=== PATIENT | male | born 1940 | race Caucasian/White ===

== ENCOUNTER 2022-04-13 17:12 | Inpatient (IN) | payer MEDICARE ==
[~2022-04-13] VITALS: Ht 188 cm; Wt 75.7 kg
--- NOTE | 2022-04-13 17:20 | NUR ---
81 Y.O. M MILLYLilliam FROM [facility] DUE TO LOW BP. BP WAS 110/70 WHEN PT WAS LAYING DOWN BUT WHEN RETAKEN SITTING UP IT WAS 68/40. ON ARRIVAL PTS BP WAS 126/74. PT TOLD EMS HE HAD BEEN FEELING WEAK FOR THE LAST FEW DAYS. PT DENIES PAIN AT THIS TIME. DENEIS CHEST PAIN, SOB, AND N/V/D. A&OX4, SKIN INTACT, VITALS WNL, AND AMBULATES WITH ASSITIVE DEVICE. NKA HX: CHF, PRE DIABETIC, BLIND R EYE
[2022-04-13 17:28] VITALS: BP 126/74
--- NOTE | 2022-04-13 18:34 | NUR ---
DR SWARTZ AT BEDSIDE EVALUATING PT
[2022-04-13] MEDS ORDERED: NACL 0.9% 500 ML IV ONE ×2 (18:50→20:30)
[2022-04-13 19:19] LABS: BASOPHILS % (AUTO) 0.2 % (0.0-2.0); EOSINOPHILS # (AUTO) 0.1 K/uL (0-0.4); HEMATOCRIT 38.5 % (36-52); HEMOGLOBIN 12.7 g/dL (12.0-18.0); LYMPHOCYTES # (AUTO) 0.4 K/uL (2.0-11.5); LYMPHOCYTES % (AUTO) 5.2 % (20.5-51.1); MEAN CORPUSCULAR HEMOGLOBIN 31 pg (27-31); MEAN CORPUSCULAR HGB CONC 33 g/dL (33-37); MEAN CORPUSCULAR VOLUME 94.8 fL (80-94); MONOCYTES # (AUTO) 0.6 K/uL (0.8-1.0); MONOCYTES % (AUTO) 7.7 % (1.7-9.3); NEUTROPHILS % (AUTO) 85.9 % (42.2-75.2); PLATELET COUNT (AUTO) 266 K/uL (140-450); RED BLOOD CELL COUNT(AUTO) 4.06 MIL/uL (4.20-6.10); RED CELL DISTRIBUTION WIDTH 14.2 % (11.6-13.7); WHITE BLOOD COUNT (AUTO) 8.2 K/uL (4.8-10.8)
--- NOTE | 2022-04-13 19:26 | NUR ---
Note undone in EDM - 04/13/22 at 1927 by LUIGI 81 Y.OAmber WOOD FROM [facility] DUE TO LOW BP. BP WAS 110/70 WHEN PT WAS LAYING DOWN BUT WHEN RETAKEN SITTING UP IT WAS 68/40. ON ARRIVAL PTS BP WAS 126/74. PT TOLD EMS HE HAD BEEN FEELING WEAK FOR THE LAST FEW DAYS. PT DENIES PAIN AT THIS TIME. DENEIS CHEST PAIN, SOB, AND N/V/D. A&OX4, SKIN INTACT, VITALS WNL, AND AMBULATES WITH ASSITIVE DEVICE. SO HX: CHF, PRE DIABETIC, BLIND R EYE
--- NOTE | 2022-04-13 19:27 | NUR ---
Pt report given to WESLEY PINEDA. Transfer of care at this time.
[2022-04-13 19:36] LABS: ALBUMIN 2.9 g/dL (3.4-5.0); ANION GAP 15.1 (8-16); ASPARTATE AMINOTRANSFERASE 11 U/L (15-37); CARBON DIOXIDE 22.5 mmol/L (21-32); CHLORIDE 104 mmol/L (98-107); CREATININE 2.2 mg/dL (0.6-1.3); GLUCOSE 143 mg/dL (74-106); POTASSIUM 4.6 mmol/L (3.5-5.1); SODIUM SERUM 137 mmol/L (136-145); TOTAL BILIRUBIN 0.6 mg/dL (0.0-1.0); UREA NITROGEN, BLOOD 36 mg/dL (7-18)
--- NOTE | 2022-04-13 21:20 | NUR ---
COVID/DANNY SWAB COLLECTED AND WALKED TO LAB
[2022-04-13] MEDS ORDERED: SIMV10TA1 PO (22:01)
[2022-04-13] MEDS ORDERED: MELA3TER PO (22:01)
[2022-04-13] MEDS ORDERED: FERR325E14 PO (22:01)
[2022-04-13] MEDS ORDERED: TAMS0.4C96 PO (22:01)
[2022-04-13] MEDS: NACL 0.9% 1,000 ML IV SCH (22:07)
--- NOTE | 2022-04-13 22:58 | NUR ---
Patient will be admitted to care of DR KOLB. Admited to TELE. Will go to room 123B. Belongings list completed. Report to WESLEY KENDRICK.
--- NOTE | 2022-04-13 23:00 | NUR ---
PT WAS TRANSPORTED ON GURNEY FROM ER. PT CAME IN FOR PROGRESSIVE WEAKNESS AND LOW BLOOD PRESSURE. PT IS AAOX4 BUT [place]. 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 PT IS ON RA. PT HAS IV ON LEFT AC 20 GAUGE WITH NS 100 CC/HR. PT IS ABLE TO AMBULATE WITH ASSISTIVE DEVICE. PT IS EDUCATED NOT TO AMBULATE SINCE HIS BLOOD PRESSURE WAS GOING DOWN TO THE 70S AND 60S SYSTOLIC WHEN STANDING UP. PT EDUCATED EQUIPMENT MAINTENANCE ENGINEER LIGHT SYSTEM. PT DENIES ANY PAIN. PLAN OF CARE DISCUSSED. WILL CONTINUE TO MONITOR THE PT.
[2022-04-14] VITALS: BP 149/92
[2022-04-14 00:09] LABS: APPEARANCE,URINE HAZY (CLEAR); BILIRUBIN,URINE NEGATIVE (NEGATIVE); BLOOD, URINE NEGATIVE (NEGATIVE); COLOR,URINE YELLOW (YELLOW); LEUKOCYTE ESTERASE ,URINE NEGATIVE (NEGATIVE); NITRITE, URINE NEGATIVE (NEGATIVE); PH,URINE 5.5 (5.0-9.0); UGLUCOSE NEGATIVE (NEGATIVE)
--- NOTE | 2022-04-14 01:58 | NUR ---
PT IS AWAKE. PT HELPED WITH USING URINAL. PT HAS NO COMPLAINS AT THIS TIME. IVF RUNNING PER MD ORDER. CALL LIGHT WITHIN REACH. WILL CONTINUE TO MONITOR THE PT.
[2022-04-14 04:00] VITALS: BP 140/77
--- NOTE | 2022-04-14 05:05 | NUR ---
PT WAS CLEANED AND CHANGED. PT HAD 2 BM. LOOSE AND BLACK. PT WAS ABLE TO ASSIST WITH TURNING. NEW GOWN PLACED. NO COMPLAINS FROM THE PT. WILL CONTINUE TO MONITOR THE PT.
[2022-04-14 06:15] LABS: ANION GAP 14.7 (8-16); BASOPHILS % (AUTO) 0.2 % (0.0-2.0); CARBON DIOXIDE 21.4 mmol/L (21-32); CHLORIDE 107 mmol/L (98-107); CREATININE 1.7 mg/dL (0.6-1.3); EOSINOPHILS # (AUTO) 0.1 K/uL (0-0.4); EOSINOPHILS % (AUTO) 1.9 % (0.0-4.0); GLUCOSE 82 mg/dL (74-106); HEMATOCRIT 34.7 % (36-52); HEMOGLOBIN 11.6 g/dL (12.0-18.0); LYMPHOCYTES # (AUTO) 0.6 K/uL (2.0-11.5); LYMPHOCYTES % (AUTO) 8.8 % (20.5-51.1); MEAN CORPUSCULAR HEMOGLOBIN 31 pg (27-31); MEAN CORPUSCULAR HGB CONC 34 g/dL (33-37); MEAN CORPUSCULAR VOLUME 93.7 fL (80-94); MONOCYTES # (AUTO) 0.9 K/uL (0.8-1.0); MONOCYTES % (AUTO) 13.3 % (1.7-9.3); NEUTROPHILS # (AUTO) 5.1 K/uL (1.8-7.7); NEUTROPHILS % (AUTO) 75.8 % (42.2-75.2); PLATELET COUNT (AUTO) 263 K/uL (140-450); POTASSIUM 4.1 mmol/L (3.5-5.1); SODIUM SERUM 139 mmol/L (136-145); UREA NITROGEN, BLOOD 31 mg/dL (7-18); WHITE BLOOD COUNT (AUTO) 6.8 K/uL (4.8-10.8)
[2022-04-14] MEDS: NACL 0.9% 1,000 ML IV SCH (06:35)
--- NOTE | 2022-04-14 07:32 | NUR ---
ENDORSED PT TO DAY SHIFT RN FOR CONTINUITY OF CARE. PT IS STABLE.
--- NOTE | 2022-04-14 07:34 | NUR ---
RECEIVED PATIENT REPORT FROM LIVESTOCK SHOWMAN NURSE FOR CONTINUITY OF CARE. PT IS AAOX4 BUT [place]. 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 ON ROOM AIR AND NO DISTRESS NOTED. PT HAS IV ON LEFT AC 20 GAUGE WITH NS 100 CC/HR. SKIN IS WARM, DRY, AND INTACT. DENIES PAIN AT THE MOMENT. PLAN OF CARE DISCUSSED. SAFETY PRECAUTIONS IN PLACE. CALL LIGHT WITHIN REACH. WILL CONTINUE TO MONITOR THE PT.
[2022-04-14 08:00] VITALS: BP 145/88
--- NOTE | 2022-04-14 09:00 | NUR ---
NO SCHEDULED MEDS GIVEN. PT IS STABLE. NO DISTRESS NOTED. WILL CONTINUE TO MONITOR.
--- NOTE | 2022-04-14 10:44 | NUR ---
PATIENT HAS BEEN SCREENED AND CATEGORIZED MODERATE NUTRITION RISK. PATIENT WILL BE SEEN WITHIN 3-5 DAYS OF ADMISSION. [address]
[2022-04-14] MEDS ORDERED: MORPHINE SULFATE 2 MG/ML SYR IVP PRN (11:35)
[2022-04-14] MEDS ORDERED: DOCUSATE SODIUM 100 MG GELCAP PO PRN (11:35)
[2022-04-14] MEDS ORDERED: ACETAMINOPHEN 325 MG TAB PO PRN (11:35)
[2022-04-14] MEDS ORDERED: ZOLPIDEM 10 MG TAB PO PRN (11:35)
[2022-04-14] MEDS ORDERED: POTASSIUM CHLORIDE 10 MEQ TABER PO PRN (11:35)
[2022-04-14] MEDS ORDERED: ONDANSETRON 4 MG/2 ML VIAL IVP PRN (11:35)
[2022-04-14] MEDS ORDERED: MAG SULF 2000 MG/WATER PREMIX 50 ML IV PRN (11:55)
--- NOTE | 2022-04-14 12:10 | NUR ---
CHECKED ON PATIENT. PT IS STABLE. NO DISTRESS NOTED. WILL CONTINUE TO MONITOR.
--- NOTE | 2022-04-14 15:00 | NUR ---
OBTAINED STOOL SAMPLE AND SENT DOWN TO LABS
[2022-04-14 16:00] VITALS: BP 139/80
--- NOTE | 2022-04-14 16:44 | NUR ---
DC PLANNING: THE PATIENT ADMITTED WITH C/O HYPOTENSION, WEAKNESS, AND DECREASED PO INTAKE. CR 2.2, CXR SHOWS MILD RIGHT BASAL ATELECTASIS, RENAL US SHOWS RENAL CYSTS. BLOOD AND URINE CULTURES ORDERED, P.T. EVAL DONE, PATIENT ABLE TO AMBULATE 3 FT. CM SPOKE WITH THE PATIENT AT BEDSIDE AND CONFIRMED HIS ADDRESS AND PHONE NUMBER. HE LIVES WITH HIS GIRLFRIEND AND GIRLFRIENDS DAUGHTER IN A SINGLE STORY HOUSE. STATES HE DOESN'T HAVE THE ENERGY TO WALK MORE THAN ONCE A DAY BUT DOESN'T WANT TO GO TO SNF. NO HOME HEALTH, HAS A GAUGE OPERATOR 3 DAYS A WEEK, 4 HOURS A DAY. HE HAS DME OF FWW, WC AND BEDSIDE COMMODE. PATIENT'S GIRLFRIEND WILL TRANSPORT HIM HOME WHEN HE'S CLEARED FOR DISCHARGE, CM WILL FOLLOW. Addendum: 04/19/22 at 1134 by Lottie Brewster CM DC PLANNING: THE PATIENT WAS REFERRED TO [facility] ([phone]) PER DIRECTION BY TALON VAN AT [facility]. TALON SPOKE WITH Mophie, THEY WILL START CARE FOR THE PATIENT THIS WEEK. CM WILL FOLLOW.
--- NOTE | 2022-04-14 17:02 | NUR ---
RECEIVED REPORT FROM WESLEY STREETER FOR CONTINUITY OF CARE. PT IS SLEEPING, EASILY AROUSABLE BY VERBAL STIMULI. A&O4, ABLE TO COMMUNICATE NEEDS. RESPIRATIONS EVEN AND UNLABORED ON RA. IV SITE AT [facility], . CALL LIGHT WITHIN REACH. SAFETY PRECAUTIONS IN PLACE. WILL CONTINUE TO MONITOR.
--- NOTE | 2022-04-14 17:03 | NUR ---
ENDORSED TO NIKO AMES FOR CONTINUITY OF CARE. PT IS STABLE.
--- NOTE | 2022-04-14 18:05 | NUR ---
ASSISTED PT EAT DINNER. NO DISTRESS NOTED. WILL CONTINUE TO MONITOR.
--- NOTE | 2022-04-14 19:24 | NUR ---
ENDORSED PT TO APPELLATE COURT JUDGE NURSE FOR CONTINUITY OF CARE. ALL NEEDS MET THROUGHOUT SHIFT. PT IS STABLE.
[2022-04-14 20:00] VITALS: BP 117/76
[2022-04-14] MEDS ORDERED: SIMVASTATIN 10 MG TAB PO SCH (21:00)
--- NOTE | 2022-04-14 21:00 | NUR ---
RECEIVED REPORT OF PT IN STABLE CONDITION.SL PATENT.PT DENIED ANY PAIN AT THIS TIME.WILL CONTINUE MONITORING.
--- NOTE | 2022-04-15 | NUR ---
SLEEPING W/O S/S OF ANY DISTRESS.CALL LIGHT WITHIN REACH.
[2022-04-15 04:00] VITALS: BP 111/61
[2022-04-15 06:16] LABS: BASOPHILS % (AUTO) 0.3 % (0.0-2.0); EOSINOPHILS # (AUTO) 0.2 K/uL (0-0.4); EOSINOPHILS % (AUTO) 3.8 % (0.0-4.0); HEMATOCRIT 34.3 % (36-52); HEMOGLOBIN 11.6 g/dL (12.0-18.0); LYMPHOCYTES # (AUTO) 0.7 K/uL (2.0-11.5); LYMPHOCYTES % (AUTO) 11.6 % (20.5-51.1); MEAN CORPUSCULAR HEMOGLOBIN 32 pg (27-31); MEAN CORPUSCULAR HGB CONC 34 g/dL (33-37); MEAN CORPUSCULAR VOLUME 93.3 fL (80-94); MONOCYTES # (AUTO) 0.7 K/uL (0.8-1.0); MONOCYTES % (AUTO) 12.6 % (1.7-9.3); NEUTROPHILS # (AUTO) 4.1 K/uL (1.8-7.7); NEUTROPHILS % (AUTO) 71.7 % (42.2-75.2); PLATELET COUNT (AUTO) 271 K/uL (140-450); RED BLOOD CELL COUNT(AUTO) 3.68 MIL/uL (4.20-6.10); WHITE BLOOD COUNT (AUTO) 5.7 K/uL (4.8-10.8)
[2022-04-15 06:17] LABS: ANION GAP 12.3 (8-16); CARBON DIOXIDE 23.7 mmol/L (21-32); CHLORIDE 108 mmol/L (98-107); CREATININE 1.8 mg/dL (0.6-1.3); GLUCOSE 71 mg/dL (74-106); SODIUM SERUM 140 mmol/L (136-145); UREA NITROGEN, BLOOD 28 mg/dL (7-18)
--- NOTE | 2022-04-15 06:36 | NUR ---
PT SLEPT WELL.NO ANY DISTRESS NOTED AT PRESENT TIME.
--- NOTE | 2022-04-15 07:29 | NUR ---
ENDORSED TO AM RN IN STABLE CONDITION.
--- NOTE | 2022-04-15 07:30 | NUR ---
RECEIVED PATIENT REPORT FROM AUTOMOTIVE LUBE TECHNICIAN NURSE FOR CONTINUITY OF CARE. AOX4, VERBAL. 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 ON ROOM AIR AND NO DISTRESS NOTED. NO C/O PAIN. IV ON LEFT AC 20 GAUGE, SALINE LOCKED. SKIN IS WARM, DRY, AND INTACT. DENIES PAIN AT THE MOMENT. PLAN OF CARE DISCUSSED. SAFETY PRECAUTIONS IN PLACE. CALL LIGHT WITHIN REACH. WILL CONTINUE TO MONITOR
[2022-04-15 08:00] VITALS: BP 121/73
[2022-04-15] MEDS ORDERED: TAMSULOSIN 0.4 MG CAP PO SCH (09:00)
--- NOTE | 2022-04-15 09:30 | NUR ---
DUE MEDS GIVEN, TOLERATED WELL
--- NOTE | 2022-04-15 12:30 | NUR ---
PT UP IN W/C FOR DISCHARGE
--- NOTE | 2022-04-15 12:45 | NUR ---
PT'S PARTNER AT BEDSIDE, DISCHARGE INSTRUCTIONS GIVEN. WAITING FOR DAUGHTER TO ASSIST WITH HAT DESIGNER
--- NOTE | 2022-04-15 14:30 | NUR ---
Patient discharged with v/s stable. Written and verbal after care instructions given and explained. Patient verbalized understanding. Wheel Chair Assisted with to car. All questions addressed prior to discharge. Advised to follow up with PMD.
== END 2022-04-15 14:30 | disposition home or self-care (01) | DRG 640 ==
LOC: MED 17:12 → MTU 20:51
PROVIDERS: ADMIT Family Medicine; ATTEND Family Medicine
DX: E86.0 Dehydration (principal); N17.0 Acute kidney failure with tubular necrosis; E44.1 Mild protein-calorie malnutrition; Z20.822 Contact with and (suspected) exposure to COVID-19; N40.0 Benign prostatic hyperplasia without lower urinary tract symptoms; Z74.01 Bed confinement status; Z79.899 Other long term (current) drug therapy; Z68.21 Body mass index [BMI] 21.0-21.9, adult
CPT/HCPCS: 36415; 71045; 76770; 80048; 80053; 81003; 82272; 82550; 83036; 83605; 83735; 84484; 85025; 87040; 87081; 87086; 93005; 97163-GP; 97530; 99285; J1644; J7030; Q0092